=== PATIENT | female | born 1980 | race Caucasian/White ===

== ENCOUNTER 2018-08-31 13:20 | Emergency (ER) | payer OTHER ==
[2018-08-31 14:03] VITALS: PULSE 80; RESP 18; TEMP 98.2
[2018-08-31 15:12] LABS: ALT 27 U/L (9-52); AST 30 U/L (14-36); African American GFR (CKD) >90 (>60 ml/min/1.73 sqM); Albumin 3.3 g/dL (3.5-5.0); Alkaline Phosphatase 70 U/L (38-126); Anion Gap 5 mmol/L; Blood Urea Nitrogen 13 mg/dL (7-17); Calcium 8.4 mg/dL (8.4-10.2); Carbon Dioxide 26 mmol/L (22-30); Chloride 109 mmol/L (98-107); Glucose 108 mg/dL (74-99); Potassium 4.2 mmol/L (3.5-5.1); Sodium 140 mmol/L (137-145); Total Bilirubin 0.1 mg/dL (0.2-1.3); Total Protein 5.6 g/dL (6.3-8.2)
[2018-08-31 15:13] LABS: Basophils % (A) 1 %; Eosinophils # (A) 0.3 k/uL (0-0.7); Eosinophils % (A) 4 %; HCT 35.6 % (34.0-46.0); HGB 10.9 gm/dL (11.4-16.0); Lymphocytes # (A) 3.1 k/uL (1.0-4.8); Lymphocytes % (A) 44 %; MCH 30.1 pg (25.0-35.0); MCHC 30.6 g/dL (31.0-37.0); MCV 98.5 fL (80.0-100.0); Mean Platelet Volume 7.8; Monocytes # (A) 0.4 k/uL (0-1.0); Monocytes % (A) 6 %; Neutrophils # (A) 3.1 k/uL (1.3-7.7); Neutrophils % (A) 43 %; Platelet Count 276 k/uL (150-450); RBC 3.62 m/uL (3.80-5.40); RDW 13.9 % (11.5-15.5); WBC 7.2 k/uL (3.8-10.6)
[2018-08-31 15:15] LABS: Appearance,Urine Clear (Clear); Bilirubin,Urine Negative (Negative); Blood,Urine Negative (Negative); Color,Urine Yellow; Glucose,Urine (UA) Negative (Negative); Ketones,Urine Negative (Negative); Leukocyte Esterase,Urine Small (Negative); Mucus,Urine Rare /hpf; Nitrite,Urine Negative (Negative); Protein,Urine Negative (Negative); RBC,Urine 12 /hpf (0-5); Specific Gravity,Urine 1.023 (1.001-1.035); Squamous Epithelial Cell,Urine 3 /hpf (0-4); Urobilinogen,Urine <2.0 mg/dL (<2.0)
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
[2018-08-31 17:27] VITALS: BP 139/77
== END 2018-08-31 17:00 | disposition home or self-care (01) ==
LOC: EC 13:20
DX: R60.0 Localized edema (principal); F11.10 Opioid abuse, uncomplicated; F17.200 Nicotine dependence, unspecified, uncomplicated; M79.7 Fibromyalgia; F32.9 Major depressive disorder, single episode, unspecified; F41.9 Anxiety disorder, unspecified; Z88.5 Allergy status to narcotic agent; Z79.891 Long term (current) use of opiate analgesic; Z79.899 Other long term (current) drug therapy
CPT/HCPCS: 36415; 80053; 81001; 83880; 85025; 99284

== ENCOUNTER 2020-08-03 11:10 | Emergency (ER) | payer OTHER ==
[2020-08-03 11:15] VITALS: BP 135/88; PULSE 98; RESP 18; TEMP 97.5
[2020-08-03] MEDS ORDERED: ACETAMINOPHEN TAB 500 MG TAB PO STA (11:32)
--- NOTE | 2020-08-03 12:10 | XR ---
EXAMINATION TYPE: XR chest 2V DATE OF EXAM: 08/03/2020 COMPARISON: None INDICATION: Cough with right chest wall pain TECHNIQUE: Frontal and lateral views of the chest are obtained. FINDINGS: The heart size is normal. The pulmonary vasculature is normal. The lungs are clear. There is mild hyperinflation present. No pneumothorax is evident. No displaced r ib fractures are identified. IMPRESSION: 1. No acute pulmonary process.
--- NOTE | 2020-08-03 12:18 | ED ---
URI HPI - General Chief Complaint: Upper Respiratory Infection Stated Complaint: Pain in Lungs, TEJINDER Time Seen by Provider: 08/03/20 11:17 Source: patient, RN notes reviewed Mode of arrival: ambulatory Limitations: no limitations - History of Present Illness Initial Comments: Patient is a 40-year-old female that presents to the emergency department compl aining of upper respiratory tract symptoms such as cough with some right-sided chest wall pain during coughing. She notes that she was using a new chemical at work on Thursday. She notes that Thursday night she noticed that she started having coughing fits that were dry with no production. She also noted that during his coughing fits she had some diaphragm and chest wall pain. She was sent in for evaluation for possible workplace environmental exposure to a lung irritant. She was in no apparent distress or pain while sitting up in a chair during the exam and interview. She denied any chest pain palpitations lightheadedness dizziness fever fatigue chills nausea vomiting diarrhea constipation. - Related Data Home Medications Medication Instructions Recorded Confirmed Acetaminophen Tab [Tylenol Tab] 650 mg PO Q4H PRN 08/31/18 08/31/18 Buprenorphine HCl/Naloxone HCl 1 film SL ONCE 08/31/18 08/31/18 [Buprenorp-Nalox 4-1 mg Sl Film] Calcium Carb/Magnesium Ox,Carb 2 tab PO TID PRN 08/31/18 08/31/18 [Cornelius-Mag 500-250 MG Chewable] FLUoxetine HCL [PROzac] 40 mg PO DAILY 08/31/18 08/31/18 Hyoscyamine Sulfate [Levsin-Sl] 0.125 mg SL QID PRN 08/31/18 08/31/18 Ibuprofen [Motrin] 600 mg PO Q6HR PRN 08/31/18 08/31/18 Loperamide [Imodium] 4 mg PO BID PRN 08/31/18 08/31/18 Mirtazapine [Remeron] 15 mg PO HS 08/31/18 08/31/18 Multivitamins, Thera [Multivitamin 1 tab PO DAILY 08/31/18 08/31/18 (formulary)] Thiamine HCl [Vitamin B-1] 100 mg PO DAILY 08/31/18 08/31/18 Trimethobenzamide HCl [Tigan] 300 mg PO Q6H PRN 08/31/18 08/31/18 busPIRone HCl [Buspar] 10 mg PO TID PRN 08/31/18 08/31/18 cloNIDine HCL [Catapres] 0.1 mg PO Q4H PRN MDD HOLD IF BP 08/31/18 08/31/18 <90/60 ondansetron HCL [Zofran] 8 mg PO Q6H PRN 08/31/18 08/31/18 traZODone HCL 50 mg PO HS PRN 08/31/18 08/31/18 Previous Rx's Medication Instructions Recorded hydroCHLOROthiazide [Hydrodiuril] 25 mg PO DAILY 3 Days #3 tab 08/31/18 Allergies Allergy/AdvReac Type Severity Reaction Status Date / Time codeine Allergy Rash/Hives Verified 08/03/20 11:15 Review of Systems ROS Statement: Those systems with pertinent positive or pertinent negative responses have been documented in the HPI. ROS Other: All systems not noted in ROS Statement are negative. Past Medical History Past Medical History: Fibromyalgia Additional Past Medical History / Comment(s): DJD History of Any Multi-Drug Resistant Organisms: None Reported Past Surgical History: No Surgical Hx Reported Past Psychological History: Anxiety, Depression, PTSD Smoking Status: Current every day smoker Past Alcohol Use History: None Reported Past Drug Use History: None Reported General Exam Limitations: no limitations General appearance: alert, in no apparent distress Head exam: Present: atraumatic, normocephalic, normal inspection Eye exam: Present: normal appearance, PERRL, EOMI. Absent: scleral icterus, conjunctival injection, periorbital swelling Neck exam: Present: normal inspection Respiratory exam: Present: normal lung sounds bilaterally. Absent: respiratory distress, wheezes, rales, rhonchi, stridor Cardiovascular Exam: Present: regular rate, normal rhythm, normal heart sounds. Absent: systolic murmur, diastolic murmur, rubs, gallop, clicks GI/Abdominal exam: Present: soft, normal bowel sounds. Absent: distended, tenderness, guarding, rebound, rigid Extremities exam: Present: normal inspection, full ROM, normal capillary refill. Absent: tenderness, pedal edema, joint swelling, calf tenderness Neurological exam: Present: alert, oriented X3 Psychiatric exam: Present: normal affect, normal mood Skin exam: Present: warm, dry, intact, normal color. Absent: rash Course Vital Signs 08/03/20 11:11 Temperature 97.5 F L Pulse Rate 98 Respiratory 18 Rate Blood Pressure 135/88 O2 Sat by Pulse 99 Oximetry Medical Decision Making - Medical Decision Making 40-year-old female complaining of upper respiratory tract symptoms including cough and some chest wall tenderness with coughing fits. Labs, chest x-ray, EKG, Covid test ordered. Patient declined all lab work except for chest x-ray and work required urinalysis. Patient understands that she accepts all responsibility due to declining necessary lab work. EKG unremarkable chest x-ray negative for any acute process. Case discussed with Dr. Penny, patient discharge home with follow-up to primary care. - EKG Data -: EKG Interpreted by [facility] EKG shows normal: sinus rhythm Rate: normal EKG Comments: Ventricular rate 66 bpm, MT interval 134 ms, QRS duration 74 ms, QTC 423 ms, PRT axes 74/68/68. Normal sinus rhythm, normal ECG. - Radiology Data Radiology results: report reviewed, image reviewed Chest x-ray: No acute pulmonary process. Disposition Clinical Impression: Upper respiratory tract infection Disposition: HOME SELF-CARE Condition: Stable Instructions (If sedation given, give patient instructions): Upper Respiratory Infection (ED) Additional Instructions: Please return to the Emergency Department if symptoms worsen or any other concerns. Follow-up with primary care as needed. Can return to work. For any fevers take Tylenol Motrin. Is patient prescribed a controlled substance at d/c from ED?: No Referrals: Mary Kay Babin FNPBC [Primary Care Provider] - 1-2 days Time of Disposition: 12:18
== END 2020-08-03 12:25 | disposition home or self-care (01) ==
LOC: EC 11:10
DX: J06.9 Acute upper respiratory infection, unspecified (principal); M79.7 Fibromyalgia; F32.9 Major depressive disorder, single episode, unspecified; F17.200 Nicotine dependence, unspecified, uncomplicated
CPT/HCPCS: 71046; 99283